=== PATIENT | female | born 1980 | race Caucasian/White ===

== ENCOUNTER 2016-08-25 12:22 | Emergency (ER) | payer BC, OTHER ==
--- NOTE | 2016-08-25 13:21 | UC ---
Back Pain HPI - HPI Summary HPI Summary: complaint was at work 2 days and suddenly had a stabbing pain in her lower back pain was so painful she fell onto the floor constant aching pain in her lower back that radiates into thoracic spine and buttocks pain is worsened by movement , can't find any position for comfort nothing makes the pain lessen denies fever and chills, incontinence, unintentional weight loss took some muscle relaxers without relief of pain chronic back pain - sees chiropractor-Dr Sj Perez - History of Current Complaint Chief Complaint: UCBackPain Stated Complaint: SEVERE BACK PAIN Time Seen by Provider: 08/25/16 13:14 Hx Obtained From: Patient Hx Last Menstrual Period: 2 weeks - Allergies/Home Medications Allergies/Adverse Reactions: Allergies Allergy/AdvReac Type Severity Reaction Status Date / Time Penicillins Allergy Severe Swelling Verified 08/25/16 13:10 Of Face,Lips,& Throat Bee Venom Allergy Anaphylatic Verified 08/25/16 13:10 Shock Home Medications: Home Medications Cyclobenzaprine TAB* [Flexeril 10 MG TAB*] 10 mg PO BID PRN 08/25/16 [History Confirmed 08/25/16] PMH/Surg Hx/FS Hx/Imm Hx Previously Healthy: No - fibromyalgia Neurological History Of: Reports: Migraine - Surgical History Surgical History: None - Family History Known Family History: Negative: Cardiac Disease, Hypertension, Diabetes - Social History Occupation: Employed Full-time Lives: With Family Alcohol Use: Weekly Alcohol Amount: 2 Substance Use Type: None Smoking Status (MU): Never Smoked Tobacco Review of Systems Constitutional: Negative Skin: Negative Eyes: Negative ENT: Negative Respiratory: Negative Cardiovascular: Negative Gastrointestinal: Negative Genitourinary: Negative Motor: Negative Neurovascular: Negative Musculoskeletal: Other: - lower back pain Neurological: Negative Psychological: Negative All Other Systems Reviewed And Are Negative: Yes Physical Exam Triage Information Reviewed: Yes Appearance: Well-Nourished, Pain Distress, Obese Vital Signs: Initial Vital Signs Temp 98.5 F 08/25/16 12:56 Pulse 92 08/25/16 12:56 Resp 32 08/25/16 12:56 BP 142/82 08/25/16 12:56 Pulse Ox 98 08/25/16 12:56 Vital Signs Reviewed: Yes Eye Exam: Normal ENT: Positive: Pharynx normal, TMs normal Neck: Positive: No Lymphadenopathy Respiratory: Positive: Lungs clear, Normal breath sounds, No respiratory distress, No accessory muscle use Cardiovascular: Positive: RRR, No Murmur, Pulses Normal Abdomen Description: Positive: Nontender, Soft Bowel Sounds: Positive: Present Musculoskeletal: Positive: No Edema, Other: - Spine have no noted deformities or signs of inflammation. Curvature of thoracic, and lumbar spine are within normal limits. Bony features of shoulders and hips are of equal height bilaterally. Posture is not upright bending to the right, and gait is uneven Spinous processes of T5 tenderness , L!-L5 tenderness No step-offs. lumbar paraspinal tenderness bilaterally unable to move spine without any increase in pain Neurological Exam: Normal Psychological Exam: Normal Skin Exam: Normal Re-Evaluation - Re-Evaluation First Eval Change: Worse - patient states that she feels dizzy and nauseated, moved onto a stretcher Back Pain Course/Dx - Course Course Of Treatment: exam completed. d/t adverse effects from norco -cancelled the rx for norco at [facility]. pt's pain uncontrolled advised to transfer to ED for pain control and further evlautation.Pt chooses to leave AMA - Differential Dx/Diagnosis Differential Diagnosis/HQI/PQRI: Herniated Disc, Strain, Sprain Provider Diagnoses: minor scoliosis. back pain Discharge - Discharge Plan Condition: Stable Disposition: AGAINST MEDICAL ADVICE Prescriptions: Ibuprofen TAB* [Motrin TAB* 800 MG] 800 mg PO Q8H #30 tab Referrals: Sj Perez DO [Primary Care Provider] - Additional Instructions: Start flexeril as directed. Do not drink alcohol or drive while taking flexeril. Please call physical therapy for further evaluation and treatment. Take ibuprofen for fever or pain. Increase fluids and rest. Please review your discharge instructions. If your symptoms do not improve please call your primary care provider or return to urgent care.
[2016-08-25] MEDS ORDERED: HYDROcodone/ACETAMIN 5-325 MG* 1 TAB PO ONE (13:26)
--- NOTE | 2016-08-25 14:05 | RAD ---
Indication: Back pain. 2 views of the thoracic spine demonstrates vertebral bodies to be normal in height. Disc spaces are well-preserved. Pedicles appear intact. IMPRESSION: No fracture of the thoracic spine is present.
--- NOTE | 2016-08-25 14:06 | RAD ---
INDICATION: Back pain COMPARISON: None TECHNIQUE: Routine PA, lateral, and oblique imaging was performed . FINDINGS: Bones: There are no acute bony findings. There are no significant osteoarthritic findings. Alignment: There is mild levoscoliosis. There is lumbar straightening. Disc spaces: The disc spaces are well-maintained Soft tissues: There are no soft tissue abnormalities. IMPRESSION: MINOR SCOLIOSIS AND LUMBAR STRAIGHTENING, OTHERWISE NEGATIVE.
[2016-08-25] MEDS ORDERED: Ondansetron ODT TAB* 4 MG PO ONE ×2 (14:11→14:25)
[2016-08-25 14:22] VITALS: BP 134/74
== END 2016-08-25 15:00 | disposition left against medical advice (07) ==
LOC: UCCORT 12:22
DX: M54.5 Low back pain (principal); M41.9 Scoliosis, unspecified
CPT/HCPCS: 72070; 72100; 99213; A9270-GY; G0463

== ENCOUNTER 2018-01-14 | Emergency (ER) | payer OTHER | END 2018-01-14 12:05 | disposition home or self-care (01) | LOC: UCCORT 11:30 | DX: L25.9 Unspecified contact dermatitis, unspecified cause (principal); L01.00 Impetigo, unspecified; B95.8 Unspecified staphylococcus as the cause of diseases classified elsewhere | CPT/HCPCS: 99212; G0463 ==

== ENCOUNTER 2023-07-23 11:34 | Observation (INO) ==
[2023-07-23] MEDS ORDERED: Naloxone 0.4 mg VIAL 0.4 mg/ml 1 ml VIAL IV PUSH PRN ×2 (13:27→15:20)
[2023-07-23 14:06] LABS: ABS Basophils 0.1 10^3/uL (0.0-0.1); ABS Eosinophils 0.1 10^3/uL (0.0-0.5); ABS Lymphocytes 2.6 10^3/uL (1.0-4.8); ABS Monocytes 0.4 10^3/uL (0.0-0.9); ABS Neutrophils 12.1 10^3/uL (1.5-7.6); ABS Nucleated RBC 0.01 10^3/ul; Eosinophil % 0.4 %; Hematocrit 36.7 % (35-45); Hemoglobin 12.2 g/dL (11.5-14.3); Lymphocyte % 16.9 %; Mean Corpuscular Hemoglobin 27.6 pg (27-33); Mean Corpuscular Hgb Conc 33.1 g/dL (31-36); Mean Corpuscular Volume 83.5 fL (80-97); Mean Platelet Volume 7.7 fL (7.5-11.2); Platelet Count 365 10^3/uL (150-450); Red Cell Distribution Width 15.1 % (12-17); White Blood Count 15.3 10^3/uL (3.8-11.8)
[2023-07-23] MEDS ORDERED: Scopolamine 1 mg/72hr PATCH ONE (14:27)
[2023-07-23] MEDS ORDERED: Ondansetron 4 mg VIAL 2 MG/ML 2 ml VIAL ONE (14:27)
[2023-07-23] MEDS ORDERED: oxyCODONE SR 10 mg TAB ONE (14:28)
[2023-07-23 14:37] LABS: Activated Partial Thrombo Time 28.9 seconds (26.0-38.0); INR 1.01 (0.83-1.13)
[2023-07-23 14:50] LABS: HCG Pregnancy < 0.60 mIU/mL
[2023-07-23 14:51] LABS: Blood Urea Nitrogen 7 mg/dL (6-24); CO2 Carbon Dioxide 23 mmol/L (22-32); Calcium 9.1 mg/dL (8.6-10.3); Chloride 102 mmol/L (101-111); Creatinine, Serum 0.57 mg/dL (0.51-0.95); Glucose 123 mg/dL (70-100)
[2023-07-23 14:52] LABS: Sodium 134 mmol/L (135-145)
[2023-07-23] MEDS: Clindamycin 900 MG/D5W BAG IVPB ONE (15:00)
[2023-07-23] MEDS ORDERED: Lidocaine 1% VIAL 10 MG/ML 30 ML VIAL ONE (15:05)
[2023-07-23] MEDS ORDERED: nitroGLYCERIN DRIP 25,000 MCG/250 ML BTL ONE (15:06)
[2023-07-23] MEDS ORDERED: Iohexol 350 (CONTRAST) 100 ML PAK IV ONE ×2 (15:06→15:51)
[2023-07-23] MEDS ORDERED: Heparin 2 UNITS/ML IVPREMIX 3,000 UNIT/1,500 ML BAG IV ONE (15:06)
[2023-07-23] MEDS ORDERED: fentaNYL 100 mcg/2 ml 50 MCG/ML VIAL ONE (15:08)
[2023-07-23] MEDS ORDERED: Midazolam 5 mg/5 ml VIAL 1 mg/ml 5 ml VIAL (5 mg) ONE (15:08)
[2023-07-23] MEDS ORDERED: Flumazenil 0.5 mg/5 ml 0.1 MG/ML 5 ml VIAL IV PRN (15:20)
[2023-07-23 15:29] LABS: Anion Gap 9 mmol/L (2-16)
[2023-07-23] MEDS ORDERED: HYDROmorphone 0.5 MG/0.5 ML SYRINGE ONE ×2 (16:42→16:52)
[2023-07-23] MEDS ORDERED: Prochlorperazine 5 mg/ml 2 ml VIAL (10 mg) ONE (16:49)
[2023-07-23] MEDS ORDERED: HYDROmorphone 1 MG/1 ML SYRINGE ONE (17:27)
[2023-07-23] MEDS: HYDROmorphone 0.5 MG/0.5 ML SYRINGE IV SLOW PU ONE (17:29)
[2023-07-23] MEDS: fentaNYL 100 mcg/2 ml 50 MCG/ML VIAL IV SLOW PU ONE (17:41)
[2023-07-23] MEDS: Midazolam 10 mg/10 ml VIAL 1 mg/ml 10 ml VIAL (10 mg) IV SLOW PU ONE (17:45)
[2023-07-23] MEDS: HYDROmorphone PCA 20 MG/20 ML PCA.SYRING PCA SCH (18:15)
[2023-07-23] MEDS ORDERED: Ondansetron 4 mg VIAL 2 MG/ML 2 ml VIAL IV PRN (21:31)
[2023-07-23] MEDS ORDERED: LORazepam 2 mg VIAL 1 ml IV PUSH PRN (22:06)
[2023-07-23] MEDS: Ondansetron 4 mg VIAL 2 MG/ML 2 ml VIAL IV SCH (22:41)
[2023-07-23] MEDS: NS 0.9% 1,000 ML IV SCH (22:42)
[2023-07-24 06:30] LABS: ABS Monocytes 0.2 10^3/uL (0.0-0.9); ABS Neutrophils 15.2 10^3/uL (1.5-7.6); Eosinophil % 0.1 %; Hematocrit 36.8 % (35-45); Lymphocyte % 6.1 %; Mean Corpuscular Hemoglobin 27.5 pg (27-33); Mean Corpuscular Hgb Conc 32.7 g/dL (31-36); Mean Corpuscular Volume 83.9 fL (80-97); Mean Platelet Volume 7.9 fL (7.5-11.2); Platelet Count 390 10^3/uL (150-450); Red Blood Count 4.38 10^6/uL (3.63-4.92); Red Cell Distribution Width 15.1 % (12-17); White Blood Count 16.4 10^3/uL (3.8-11.8)
[2023-07-24 06:45] LABS: Calcium 8.6 mg/dL (8.6-10.3); Creatinine, Serum 0.58 mg/dL (0.51-0.95); Potassium 4.4 mmol/L (3.5-5.0); eGFR CKD-EPI 116.5 (>60)
[2023-07-24] MEDS: DULoxetine DR 60 mg CAP PO SCH (09:38)
[2023-07-24] MEDS: DULoxetine DR 30 mg CAP PO SCH (09:38)
[2023-07-24 10:01] VITALS: BP 130/80
[2023-07-24] MEDS ORDERED: HYDROcodone/ACETAMIN 5/325 mg TAB PO PRN (10:12)
[2023-07-24] MEDS ORDERED: Ketorolac 10 mg TAB (NF) PO SCH (15:30)
== END 2023-07-24 12:48 | disposition home or self-care (01) ==
LOC: SSU 11:34 → CHICATH 11:34 → SUATTDRO 19:12
PROVIDERS: ADMIT Internal Medicine; ATTEND Internal Medicine
PROC: ANG.UFE (2023-07-23 13:15)